=== PATIENT | female | born 1990 | race Caucasian/White ===

== ENCOUNTER 2018-11-15 07:36 | Emergency (ER) | payer OTHER ==
[2018-11-15 07:52] VITALS: BP 143/88
[2018-11-15] MEDS ORDERED: Ondansetron ODT TAB* 4 MG PO ONE (07:56)
[2018-11-15] MEDS ORDERED: Acetaminophen TAB* 325 MG PO ONE (07:56)
--- NOTE | 2018-11-15 08:04 | UC ---
Head Injury HPI - HPI Summary HPI Summary: Patient was walking to her car this morning when she slipped on the ice and fell backwards, striking the back of her head on the pavement. She got up immediately but then experienced a split second of probable LOC at which point she fell back again. Denies a second hit. Was able to get up after this fall but complained of headache, nausea, dizziness, blurry vision. Laid down on the couch for about 45 minutes. After this time she tried to stand up but vomited twice. Vision is now normal but the remainder of her symptoms have persisted. - History Of Current Complaint Chief Complaint: UCHeadInjury Stated Complaint: HEAD INJURY Time Seen by Provider: 11/15/18 07:53 Hx Obtained From: Patient Hx Last Menstrual Period: 11/08/18 Onset/Duration: Sudden Onset, Lasting Hours, Still Present Severity Currently: Moderate Severity Initially: Moderate Pain Intensity: 7 Pain Scale Used: 0-10 Numeric Character: Sharp Aggravating Factor(s): Nothing Alleviating Factor(s): Nothing Associated Signs And Symptoms: Positive: Nausea, Vomiting. Negative: Confusion , Memory Loss, Seizure, Epistaxis, Dental Malocclusion, Neck Pain - Allergies/Home Medications Allergies/Adverse Reactions: Allergies Allergy/AdvReac Type Severity Reaction Status Date / Time No Known Allergies Allergy Verified 11/15/18 07:45 Home Medications: Home Medications Control 1 tab PO DAILY 11/15/18 [History] PMH/Surg Hx/FS Hx/Imm Hx Previously Healthy: Yes - Surgical History Surgical History: None - Family History Known Family History: Positive: Non-Contributory - Social History Alcohol Use: Occasionally Substance Use Type: None Smoking Status (MU): Never Smoked Tobacco Review of Systems All Other Systems Reviewed And Are Negative: Yes Constitutional: Positive: Negative Skin: Positive: Negative Eyes: Positive: Blurred Vision Respiratory: Positive: Negative Cardiovascular: Positive: Negative Gastrointestinal: Positive: Vomiting, Nausea Physical Exam Triage Information Reviewed: Yes Appearance: Well-Appearing, No Pain Distress, Well-Nourished Vital Signs: Initial Vital Signs Temp 98.3 F 11/15/18 07:46 Pulse 75 11/15/18 07:46 Resp 18 11/15/18 07:46 BP 143/88 11/15/18 07:46 Pulse Ox 99 11/15/18 07:46 Vital Signs Reviewed: Yes Eyes: Positive: Conjunctiva Clear, Other: - PERRL, EOMI ENT: Positive: Hearing grossly normal, Pharynx normal, TMs normal - NO HEMOTYMPANUM Neck: Positive: Supple Respiratory: Positive: No respiratory distress, No accessory muscle use Cardiovascular: Positive: Pulses Normal Abdomen Description: Positive: Soft Musculoskeletal: Positive: ROM Intact, No Edema Neurological: Positive: Alert, Muscle Tone Normal, Other: - CN II-XII GROSSLY INTACT BILATERALLY. RAPID ALTERNATING MOVEMENTS INTACT. NEG PRONATOR DRIFT. NEG ROMBERG. 5/5 STRENGTH. HEEL TO FISHER INTACT BILATERALLY. TANDEM GAIT INTACT. FINGER TO NOSE INTACT. Psychological: Positive: Age Appropriate Behavior Skin: Negative: Rashes Diagnostics - Radiology CT HEAD W/O CONTRAST Radiology Interpretation Completed By: Radiologist Summary of Radiographic Findings: UNREMARKABLE Head Injury Course/Dx - Differential Dx/Diagnosis Provider Diagnosis: Scalp contusion, Concussion Discharge - Sign-Out/Discharge Documenting (check all that apply): Patient Departure All imaging exams completed and their final reports reviewed: Yes - Discharge Plan Condition: Stable Disposition: HOME Prescriptions: Ondansetron ODT TAB* [Zofran Odt TAB*] 4 mg PO Q6H PRN #20 tab.odt PRN Reason: Nausea/Vomiting Patient Education Materials: Concussion (ED) Referrals: Bahman JOENS,Pradeep Rodriguez [Primary Care Provider] - If Needed Additional Instructions: CT HEAD UNREMARKABLE. OKAY FOR TYLENOL TODAY FOR HEADACHE. STARTING TOMORROW CAN GIVE IBUPROFEN IF NEEDED. LIMIT SCREEN TIME AND AVOID ACTIVITIES THAT COULD RESULT IN ADDITIONAL HEAD INJURY. NO SPORTS FOR AT LEAST A WEEK. FOLLOW-UP WITH PCP IF SYMPTOMS ARE PERSISTENT AFTER 1 WEEK. GO TO THE ED WITHOUT FAIL IF YOU DEVELOP UNEQUAL PUPILS, VISUAL DISTURBANCE, GAIT INSTABILITY, SPEECH DIFFICULTY, NAUSEA/VOMITING, WORSENING HEADACHE, DIZZINESS, CONFUSION, WEAKNESS OR ANY OTHER CONCERNING SYMPTOMS. FOR YOUR INFORMATION: [facility] [facility] [phone] (M-F 8AM-4PM) [email or web address] (FOR HELP, INFO OR TO CONNECT WITH A SUPPORT GROUP) - Billing Disposition and Condition Condition: STABLE Disposition: Home
== END 2018-11-15 08:55 | disposition home or self-care (01) ==
LOC: UCEAST 07:36
DX: S06.0X0A Concussion without loss of consciousness, initial encounter (principal); S00.03XA Contusion of scalp, initial encounter; W00.0XXA Fall on same level due to ice and snow, initial encounter; Y92.9 Unspecified place or not applicable
CPT/HCPCS: 70450; 99212; A9270-GY; G0463